=== PATIENT | female | born 1965 | race Caucasian/White ===

== ENCOUNTER 2017-05-19 14:04 | Emergency (ER) | payer BC ==
[~2017-05-19] VITALS: Ht 162.6 cm; Wt 52.4 kg
[~2017-05-19 14:04] MED LIST: AMLODIPINE BESYL5 MG PO; FEMRING1 EACH VG; METOPROLOL SUCC25 MG PO; PREDNISONE20 MG PO; TRAZODONE HCL50 MG PO; ULTRAM50 MG PO
[2017-05-19 15:13] LABS: HEMATOCRIT 39.9 % (36.0-46.0); HEMOGLOBIN 13.7 G/DL (11.9-15.5); MCH 31.2 PG (29.0-34.0); MCHC 34.3 G/DL (30.0-36.0); MCV 90.9 FL (83-99); PLATELET COUNT 187 K/uL (156-360); RBC DIS.WIDTH-CV 12.2 % (11.8-14.6); RBC DIS.WIDTH-SD 40.8 % (39-53); RED BLOOD COUNT 4.39 M/uL (3.80-5.20); WHITE BLOOD COUNT 5.6 K/uL (4.1-10.2)
[2017-05-19 15:22] LABS: CHLORIDE 101 mEq/L (99-109); POTASSIUM 4.2 mEq/L (3.7-5.4); SODIUM 136 mEq/L (136-147)
[2017-05-19 15:24] LABS: GLUCOSE 98 mg/dL (70-99)
[2017-05-19 15:28] LABS: CREATININE 0.9 mg/dL (0.6-1.3); GFR ESTIMATE (CALCULATED) > 59 mL/min/
[2017-05-19 15:29] LABS: UREA NITROGEN (BUN) 28 mg/dL (9-23)
[2017-05-19] MEDS ORDERED: AFRIN,GENASAL D15 ML BOTH NARES (17:21)
[2017-05-19 18:23] VITALS: BP 142/78
== END 2017-05-19 18:15 | disposition home or self-care (01) ==
LOC: EME 14:04
DX: A69.22 Other neurologic disorders in Lyme disease (principal); R63.1 Polydipsia; H02.402 Unspecified ptosis of left eyelid; H92.09 Otalgia, unspecified ear; R09.81 Nasal congestion; Z79.52 Long term (current) use of systemic steroids; F17.200 Nicotine dependence, unspecified, uncomplicated
CPT/HCPCS: 80048; 85027; 99281; 99284; J7030